=== PATIENT | female | born 1990 | race Caucasian/White ===

== ENCOUNTER 2018-01-20 17:21 | Emergency (ER) | payer OTHER ==
[~2018-01-20 17:21] MED LIST: PRED20 PO
[2018-01-20 17:25] VITALS: BP 143/77; PULSE 108; RESP 18; TEMP 98; O2SAT 98
[2018-01-20 18:19] LABS: BILIRUBIN, URINE NEG (NEG); BLOOD, URINE NEG (NEG); CALCIUM OXALATE CRYSTALS,URINE MANY /hpf; GLUCOSE,URINE NEG (NEG); KETONE, URINE NEG (NEG); MUCUS URINE MOD /lpf (OCC); NITRITE,URINE NEG (NEG); SQUAMOUS EPITHELIAL CELL URINE 28 /hpf (0-5); URINE COLOR YELLOW (YELLW/STRAW); URINE LEUKOCYTE ESTERASE NEG (NEG)
--- NOTE | 2018-01-20 19:15 | PD ---
HPI Chief Complaint: Related Problem Time Seen by Provider: 19:05 Travel History International Travel<30 days: No Contact w/Intl Traveler<30days: No Traveled to known affect area: No History of Present Illness HPI 27-year-old female approximately 15 weeks , no care, here for evaluation of lower abdominal pain and vaginal spotting. Patient reports having lower abdominal pain described as cramping for the last few days , initially intermittent, now more constant, worse with walking. She is also noted small amount of vaginal spotting on the toilet paper when she wipes. History of laparoscopy for ovarian cyst when she was 15 years old. No other abdominal surgeries. She reports having a fever of 100.6F yesterday. She also has dysuria. Pain radiates to her back, currently 6 out of 10. She had an ultrasound that confirmed IUP at [facility] when she was approximately 8 weeks . She is sexually active with one partner whom she is to and believe she is in a monogamous relationship. PFSH Past Medical History ?: Ovarian Cysts: Yes Social History Alcohol Use: No Tobacco Use: No Substance Use: No Allergies-Medications (Allergen,Severity, Reaction): Coded Allergies: No Known Allergies (Verified , 05/28/11) Reported Meds & Prescriptions Reported Meds & Active Scripts Active Deltasone (Prednisone) 20 Mg Tab 1 Tab PO BID Review of Systems Except as stated in HPI: all other systems reviewed are Neg Physical Exam Narrative GENERAL: Well-developed, well-nourished, comfortable, no apparent distress. SKIN: Focused skin assessment warm/dry. HEAD: Atraumatic. Normocephalic. EYES: Pupils equal and round. No scleral icterus. No injection or drainage. ENT: No nasal bleeding or discharge. Mucous membranes pink and moist. NECK: Trachea midline. No JVD. CARDIOVASCULAR: Regular rate and rhythm. RESPIRATORY: No accessory muscle use. Clear to auscultation. Breath sounds equal bilaterally. GASTROINTESTINAL: Abdomen soft, nondistended. Mild suprapubic tenderness. No peritoneal signs. SUPPLY TECHNICIAN: Exam performed in the presence of a female nurse. Normal external genitalia. Normal-appearing cervix with closed office. No vaginal bleeding. Scant/physiologic/uqw-swhp-[id number] vaginal discharge. MUSCULOSKELETAL: No obvious deformities. No clubbing. No cyanosis. No edema. No CVA tenderness. NEUROLOGICAL: Awake and alert. No obvious cranial nerve deficits. Motor grossly within normal limits. Normal speech. PSYCHIATRIC: Appropriate mood and affect; insight and judgment normal. Data Data Last Documented VS Vital Signs Date Time Temp Pulse Resp B/P (MAP) Pulse Ox O2 Delivery O2 Flow Rate FiO2 01/20/18 17:25 98.0 108 18 143/77 (99) 98 Orders Orders Complete Rh (01/20/18 17:28) Urinalysis - C+S If Indicated (01/20/18 17:28) Ed Urine Pregnancytest Poc (01/20/18 17:28) Complete Blood Count With Diff (01/20/18 17:29) Basic Metabolic Panel (Bmp) (01/20/18 17:29) Gc And Chlamydia Pcr (01/20/18 19:15) Wet Prep Profile (01/20/18 19:15) Beta Hcg (Quant/Titer) (01/20/18 17:29) Labs Laboratory Tests Test 01/20/18 17:50 01/20/18 19:15 01/20/18 19:18 01/20/18 20:40 Urine Color YELLOW Urine Turbidity HAZY Urine pH 6.0 Urine Specific [place] 1.039 Urine Protein 30 mg/dL Urine Glucose (UA) NEG mg/dL Urine Ketones NEG mg/dL Urine Occult Blood NEG Urine Nitrite NEG Urine Bilirubin NEG Urine Urobilinogen 2.0 MG/DL Urine Leukocyte Esterase NEG Urine WBC 3 /hpf Urine Squamous Epithelial Cells 28 /hpf Urine Calcium Oxalate Crystals MANY /hpf Urine Mucus MOD /lpf Microscopic Urinalysis Comment CULT NOT INDICATED White Blood Count 10.8 TH/MM3 Red Blood Count 4.32 MIL/MM3 Hemoglobin 13.5 GM/DL Hematocrit 38.5 % Mean Corpuscular Volume 89.1 FL Mean Corpuscular Hemoglobin 31.3 PG Mean Corpuscular Hemoglobin Concent 35.2 % Red Cell Distribution Width 13.8 % Platelet Count 257 TH/MM3 Mean Platelet Volume 8.9 FL Neutrophils (%) (Auto) 76.5 % Lymphocytes (%) (Auto) 16.1 % Monocytes (%) (Auto) 6.4 % Eosinophils (%) (Auto) 0.6 % Basophils (%) (Auto) 0.4 % Neutrophils # (Auto) 8.3 TH/MM3 Lymphocytes # (Auto) 1.7 TH/MM3 Monocytes # (Auto) 0.7 TH/MM3 Eosinophils # (Auto) 0.1 TH/MM3 Basophils # (Auto) 0.0 TH/MM3 CBC Comment DIFF FINAL Differential Comment Blood Urea Nitrogen 8 MG/DL Creatinine 0.57 MG/DL Random Glucose 96 MG/DL Calcium Level 9.4 MG/DL Sodium Level 140 MEQ/L Potassium Level 3.7 MEQ/L Chloride Level 108 MEQ/L Carbon Dioxide Level 25.9 MEQ/L Anion Gap 6 MEQ/L Estimat Glomerular Filtration Rate 127 ML/MIN Human Chorionic Gonadotropin, Quant 93728 MIU/ML Clue Cells (Wet Prep) NONE SEEN Vaginal Trichomonas (Wet Prep) NONE SEEN Vaginal Yeast (Wet Prep) NONE SEEN MDM Medical Decision Making Medical Screen Exam Complete: Yes Emergency Medical Condition: Yes Differential Diagnosis UTI, cystitis, round ligament pain, nephrolithiasis, ureterolithiasis, cholecystitis/cholelithiasis less likely, threatened , inevitable , PID, ectopic , acute appendicitis less likely, BV Narrative Course Vital signs reviewed. Bedside transabdominal ultrasound performed by me shows an IUP with heart rate of 156 bpm. Bedside ultrasound of the kidneys show no hydronephrosis. CBC is unremarkable. BMP is unremarkable. Beta-hCG is 29,700. Blood type is A+. UA shows many calcium oxalate crystals, moderate mucus, negative leukocyte esterase, negative nitrites. Wet prep: Is negative for yeast, negative for clue cells, negative for trichomonas. The patient was made aware of all findings. She is resting comfortably. She does have calcium oxalate crystals in her urine which could indicate that she is passing kidney stones causing her discomfort. I do not believe that there is an acute intra-abdominal process such as appendicitis or cholecystitis to warrant further imaging at this time. There are no peritoneal signs and her abdominal exam. Patient also could have round ligament pain. At this point she is stable for discharge home with outpatient follow-up with an CHAPTER RELATIONS ADMINISTRATOR physician this week. She was advised on when to return to the emergency department. She verbalizes understanding and agreement with plan. Procedures Procedure Narrative Bedside transabdominal ultrasound: Using the curvilinear ultrasound probe, a bedside transabdominal ultrasound was performed by mi and shows an IUP with a heart rate of 156 bpm. Bedside kidney ultrasound: Using the curvilinear ultrasound probe, a bedside ultrasound of the kidneys was performed by me and shows no signs of hydronephrosis. Diagnosis Primary Impression: Abdominal pain affecting Referrals: [facility] 3 days Additional Instructions: Follow-up with an CHAPTER RELATIONS ADMINISTRATOR physician this week. Return to the emergency department for worsening symptoms or any other concerns. Disposition: 01 DISCHARGE HOME Condition: Stable Raji Weinberg MD Jan 20, 2018 19:15
[2018-01-20 19:38] LABS: AUTOMATED NEUTROPHIL # 8.3 TH/MM3 (1.8-7.7); BASOPHIL % 0.4 % (0.0-2.0); EOSINOPHIL # 0.1 TH/MM3 (0-0.4); EOSINOPHIL % 0.6 % (0.0-4.0); HEMATOCRIT 38.5 % (35.0-46.0); HEMOGLOBIN 13.5 GM/DL (11.6-15.3); LYMPH % 16.1 % (9.0-44.0); LYMPHOCYTE # 1.7 TH/MM3 (1.0-4.8); MEAN CELL VOLUME 89.1 FL (80.0-100.0); MEAN CORPUSCULAR HEMOGLOBIN 31.3 PG (27.0-34.0); MEAN CORPUSCULAR HGB CONC 35.2 % (32.0-36.0); MEAN PLATELET VOLUME 8.9 FL (7.0-11.0); MONO % 6.4 % (0.0-8.0); MONOCYTE # 0.7 TH/MM3 (0-0.9); NEUT % 76.5 % (16.0-70.0); PLATELET COUNT 257 TH/MM3 (150-450); RED BLOOD COUNT 4.32 MIL/MM3 (4.00-5.30); RED CELL DISTRIBUTION WIDTH 13.8 % (11.6-17.2); WHITE BLOOD COUNT 10.8 TH/MM3 (4.0-11.0)
[2018-01-20 19:52] LABS: BICARBONATE 25.9 MEQ/L (21.0-32.0); CALCIUM 9.4 MG/DL (8.5-10.1); CREATININE 0.57 MG/DL (0.50-1.00)
== END 2018-01-20 21:41 | disposition home or self-care (01) ==
LOC: NEPD 17:21
DX: O26.892 Other specified pregnancy related conditions, second trimester (principal); R10.9 Unspecified abdominal pain; Z3A.15 15 weeks gestation of pregnancy
CPT/HCPCS: 80048; 81001; 84702; 84703; 85025; 86901; 87210; 87491; 87591; 99284

== ENCOUNTER 2018-07-09 07:58 | Inpatient (IN) ==
[2018-07-09] MEDS ORDERED: Naloxone Inj 0.4 MG/ML Vial IV.PUSH PRN ×2 (08:42→20:36)
[2018-07-09] MEDS ORDERED: Oxytocin 30 Units/500ml Premix 30 UNITS/500 ML BAG IV.SIG ONE (08:42)
[2018-07-09] MEDS ORDERED: Sod Chloride 0.9% Inj 1,000 ML IV.CONT PRN (08:42)
[2018-07-09] MEDS ORDERED: fentaNYL Citrate Inj 100 MCG/2 ML Ampul IV.PUSH PRN ×2 (08:42)
[2018-07-09] MEDS ORDERED: Sodium Chlor 0.9% Inj 500 ML IV.SIG PRN (08:42)
[2018-07-09] MEDS ORDERED: Oxytocin 30 Units/500ml Premix 30 UNITS/500 ML BAG IV.SIG PRN (08:44)
[2018-07-09] MEDS ORDERED: Citric Acid/Sodium Citrate Liq 30 ML UDC PO SCH (08:45)
[2018-07-09] MEDS ORDERED: Sodium Chloride 0.9% 2 ML Flush PRN IV.FLUSH (08:47)
--- NOTE | 2018-07-09 08:51 | P.HPOB ---
History of Present Illness Service: obstetrics Primary Care Physician: No Primary Care Physician Weeks Gestation:: 39 Para: 2 : 3 - Inpatient Certification I certify that the inpatient services were ordered in accordance with Medicare regulations governing the order. This includes certification that hospital inpatient services are reasonable and necessary and in the case of services not specified as inpatient-only under 42 CFR 419.22(n), that they are appropriately provided as inpatient services in accordance to with the 2-midnight benchmark under 43 CFR 412.3(e) Estimated Total Length of Stay (Days): 3 Plans for Post Hospital Care: Home Review of Systems All other systems reviewed negative except as stated in HPI PMFSH - Medical / Surgical Hx Neg / Unobtainable Medical Problems Denied: Yes Surgical History: No Previous Surgery ( x2) - Social History I have reviewed the patient's Social History: Yes - Tobacco History Second Hand Smoke Exposure: No Tobacco Use In Past 30 Days: No Smoking Status: Never smoker - Alcohol History How Often Do You Have a Drink Containing Alcohol: Never - Substance Use History Substance History: No History of Abuse - Travel History History of Recent Travel: No Medications and Allergies Active Medications: Active Medications Citric Acid/Sodium Citrate (Sodium Citrate/Citric Acid Liq) 30 ml PO BLADE SHARPENER ANISHA Stop: 07/13/18 08:44 Fentanyl Citrate (Fentanyl Inj) 50 mcg IV.PUSH Q1H PRN PRN Reason: Pain Scale 3 - 5 Fentanyl Citrate (Fentanyl Inj) 100 mcg IV.PUSH Q1H PRN PRN Reason: PAIN SCALE 6 TO 10 Lactated Ringer's (Lr 1000 Ml Inj) 1,000 mls @ 125 mls/hr IV.CONT .Q8H ANISHA Sodium Chloride (Ns Inj) 500 mls @ 1,000 mls/hr IV.SIG UNSCH PRN PRN Reason: SEE LABEL COMMENTS Sodium Chloride (Ns Inj) 1,000 mls @ 100 mls/hr IV.CONT .Q10H PRN PRN Reason: SEE LABEL COMMENTS Oxytocin (Pitocin 30 Units/Ns 500 Ml Premix) 30 units in 500 mls @ 999 mls/hr IV.SIG BOLUS ONE Stop: 07/09/18 09:12 Lactated Ringer's (Lr 1000 Ml Inj) 1,000 mls @ 3,000 mls/hr IV.SIG UNSCH PRN PRN Reason: compromise or epidural Oxytocin (Pitocin 30 Units/Ns 500 Ml Premix) 30 units in 500 mls @ 2 mls/hr IV.SIG TITRATE PRN; Protocol PRN Reason: For induction of labor Lidocaine HCl (Xylocaine 1% Inj) 0.1 ml I-DERMAL PRN PRN PRN Reason: For IV start Stop: 07/12/18 08:41 Lidocaine HCl (Xylocaine 1% Inj) 10 ml INFILTRATN PRN PRN PRN Reason: For episiotomy repair Stop: 07/11/18 08:41 Mineral Oil (Muri-Lube Oil) 10 ml TOPICAL PRN PRN PRN Reason: PRN perineal massage Naloxone HCl (Narcan Inj) 0.1 mg IV.PUSH Q2M PRN PRN Reason: for opiate reversal Sodium Chloride (Ns Flush) 2 ml IV.FLUSH BID ANISHA Sodium Chloride (Ns Flush) 2 ml IV.FLUSH PRN PRN PRN Reason: FLUSH AFTER USING IV ACCESS Allergies Allergy/AdvReac Type Severity Reaction Status Date / Time No Known Allergies Allergy Verified 06/26/18 14:42 Home Medications Medication Instructions Recorded Confirmed Type No Known Home Medications 06/26/18 06/26/18 History Exam Vital signs: Vital Signs 07/09/18 08:15 Pulse Rate 107 H Blood Pressure 127/71 Intake & Output 07/08/18 07/09/18 07/09/18 18:59 06:59 18:59 Weight 107.048 kg - Constitutional no acute distress - Routine Respiratory Exam Present: CTA bilaterally - Routine Cardiovascular Exam Present: RRR - Routine Abdominal Exam Present: soft, normoactive bowel sounds - Routine Exam Patient deferred: external exam External: Present: normal urethra appearance Perineum Description: Intact - Routine Extremities Exam Present: full ROM - Additional findings Additional findings: cervix 2-3/ 80/-2 anterior Results - Labs Group B Strep: Negative Caprini VTE Risk Assessment Caprini VTE Risk Assessment: No/Low Risk (score <= 1) Caprini Risk Assessment Model: Point Value = 1 Point Value = 2 Point Value = 3 Point Value = 5 Age 41-60 Minor surgery BMI > 25 kg/m2 Swollen legs Varicose veins or History of unexplained or recurrent spontaneous Oral contraceptives or hormone replacement Sepsis (< 1 month) Serious lung disease, including pneumonia (< 1 month) Abnormal pulmonary function Acute myocardial infarction Congestive heart failure (< 1 month) History of inflammatory bowel disease Medical patient at bed rest Age 61-74 Arthroscopic surgery Major open surgery (> 45 min) Laparoscopic surgery (> 45 min) Malignancy Confined to bed (> 72 hours) Immobilizing plaster cast Central venous access Age >= 75 History of VTE Family history of VTE Factor V Leiden Prothrombin [id number] Lupus anticoagulant Anticardiolipin antibodies Elevated serum homocysteine Heparin-induced thrombocytopenia Other congenital or acquired thrombophilia Stroke (< 1 month) Elective arthroplasty Hip, pelvis, or leg fracture Acute spinal cord injury (< 1 month) Prophylaxis Regimen: Total Risk Factor Score Risk Level Prophylaxis Regimen 0-1 Low Early ambulation 2 Moderate Order ONE of the following: *Sequential Compression Device (SCD) *Heparin 5000 units SQ BID 3-4 Higher Order ONE of the following medications: *Heparin 5000 units SQ TID *Enoxaparin/Lovenox 40 mg SQ daily (WT < 150 kg, CrCl > 30 mL/min) *Enoxaparin/Lovenox 30 mg SQ daily (WT < 150 kg, CrCl > 10-29 mL/min) *Enoxaparin/Lovenox 30 mg SQ BID (WT < 150 kg, CrCl > 30 mL/min) AND/OR *Sequential Compression Device (SCD) 5 or more Highest Order ONE of the following medications: *Heparin 5000 units SQ TID (Preferred with Epidurals) *Enoxaparin/Lovenox 40 mg SQ daily (WT < 150 kg, CrCl > 30 mL/min) *Enoxaparin/Lovenox 30 mg SQ daily (WT < 150 kg, CrCl > 10-29 mL/min) *Enoxaparin/Lovenox 30 mg SQ BID (WT < 150 kg, CrCl > 30 mL/min) AND *Sequential Compression Device (SCD) Assessment and Plan - Diagnosis (1) 39 weeks gestation of Code(s): Z3A.39 - 39 weeks gestation of Status: Acute - Plan induction AROM pitocin
[2018-07-09 08:58] LABS: Baso % (Auto) 0.1 % (0.0-2.0); Eos % (Auto) 0.5 % (0.0-4.0); Hematocrit 33.3 % (35.0-46.0); Hemoglobin 11.5 gm/dL (11.6-15.3); Lymph # (Auto) 1.7 th/mm3 (1.0-4.8); Lymph % (Auto) 18.1 % (9.0-44.0); Mean Corpuscular HGB Conc 34.5 % (32.0-36.0); Mean Corpuscular Hemoglobin 30.5 pg (27.0-34.0); Mean Corpuscular Volume 88.3 fL (80.0-100.0); Mean Platelet Volume 9.2 fL (7.0-11.0); Mono # (Auto) 0.6 th/mm3 (0.0-0.9); Mono % (Auto) 6.8 % (0.0-8.0); Neut # (Auto) 6.9 th/mm3 (1.8-7.7); Neut % (Auto) 74.5 % (16.0-70.0); Platelet Count 203 th/mm3 (150-450); Red Blood Count 3.77 mil/mm3 (4.00-5.30); Red Cell Distribution Width 15.2 % (11.6-17.2); White Blood Count 9.3 th/mm3 (4.0-11.0)
[2018-07-09 09:49] LABS: Bilirubin,Urine Negative (Negative); Clarity,Urine Hazy (Clear); Color,Urine Yellow (Yellw/Straw); Glucose,Urine (UA) Negative (Negative); Leukocyte Esterase,Urine Trace (Negative); Mucus,Urine Few /lpf (Occasional); Nitrite,Urine Negative (Negative); Specific Gravity,Urine 1.017 (1.002-1.035); Squamous Epithelial Cell,Urine 9 /hpf (0-5); Urobilinogen,Urine 4 or Greater mg/dL (Less than 2)
[2018-07-09 09:53] LABS: Amphetamine Urine With Conf Neg (Neg); Benzodiazepine Urine With Conf Neg (Neg)
[2018-07-09] MEDS ORDERED: fentaNYL 2MCG-Bupiv 0.125% Epi 150 ML EPIDURAL ONE (13:53)
[2018-07-09] MEDS ORDERED: Lidocaine 2%/Epinephrine 1:200,000 PF 10 ML SDV ONE (13:55)
[2018-07-09] MEDS ORDERED: fentaNYL 2MCG-Bupiv 0.125% Epi 150 ML EPIDURAL PRN (14:43)
[2018-07-09] MEDS ORDERED: fentaNYL Citrate Inj 100 MCG/2 ML Ampul EPIDURAL ONE (14:43)
[2018-07-09] MEDS ORDERED: Measles/Mumps/Rubella Vaccine Inj 0.5 ML Vial SQ ONE (16:00)
[2018-07-09] MEDS ORDERED: Diphtheria/Tetanus/Pertussis Vaccine Inj 0.5 ML Syringe IM ONE (16:00)
[2018-07-09] MEDS: Sodium Chloride 0.9% 2 ML Flush BID IV.FLUSH SCH (16:17)
[2018-07-09] MEDS ORDERED: Lidocaine 1% Inj 50 ML Vial ONE (20:01)
[2018-07-09] MEDS ORDERED: Oxytocin 30 Units/500ml Premix 30 UNITS/500 ML BAG IV.CONT PRN (20:36)
[2018-07-09] MEDS ORDERED: Zolpidem Tartrate 5 MG Tablet PO PRN (20:36)
[2018-07-09] MEDS ORDERED: Acetaminophen 325 MG Tablet PO PRN (20:36)
[2018-07-09] MEDS ORDERED: Benzocaine 20% Top Spray 60 ML Can TOPICAL PRN (20:36)
[2018-07-09] MEDS ORDERED: Witch Hazel 50%/Glyderin 12.5% 40 Pad Jar RECTAL PRN (20:36)
[2018-07-09] MEDS ORDERED: Bisacodyl 10 MG Supp RECTAL PRN (20:36)
--- NOTE | 2018-07-09 20:40 | P.OBDELI ---
Weeks Gestation: 39 Patient Started Active Labor: Yes Medical Induction of Labor: Yes Artificial Rupture of Membrane: Yes Anesthesia: Epidural Episiotomy: none Vaginal Delivery: Normal Presentation: Occiput anterior Nuchal Cord: None Delayed Cord Clamping (45 sec): Yes Placenta: Spontaneous delivery, Intact, 3 vessel cord Repair: Chromic running Infant: Female, Single
--- NOTE | 2018-07-10 08:35 | P.PNOB ---
Subjective Post day: 1 Interval history: doing well pp Objective Vital Signs/I&O: Vital Signs 07/09/18 09:48 07/09/18 09:50 07/09/18 10:21 Temperature 98.0 F Pulse Rate 113 H Respiratory Rate 18 18 Blood Pressure 111/56 L 07/09/18 10:22 07/09/18 10:53 07/09/18 11:45 Temperature Pulse Rate 105 H 100 H 104 H Respiratory Rate 18 Blood Pressure 111/66 111/63 103/87 07/09/18 12:15 07/09/18 12:30 07/09/18 12:47 Temperature Pulse Rate 94 H 97 H 94 H Respiratory Rate 16 Blood Pressure 114/73 109/71 118/67 07/09/18 13:00 07/09/18 14:15 07/09/18 14:20 Temperature 98.2 F Pulse Rate 85 93 H 101 H Respiratory Rate 18 Blood Pressure 114/69 111/64 114/64 07/09/18 14:25 07/09/18 14:27 07/09/18 14:30 Temperature Pulse Rate 93 H 98 H Respiratory Rate 18 Blood Pressure 111/56 L 120/62 07/09/18 14:34 07/09/18 14:45 07/09/18 16:09 Temperature Pulse Rate 103 H 99 H 86 Respiratory Rate Blood Pressure 115/60 118/69 105/58 L 07/09/18 16:15 07/09/18 16:21 07/09/18 17:01 Temperature 98.1 F Pulse Rate 87 99 H Respiratory Rate Blood Pressure 106/54 L 118/51 L 07/09/18 17:15 07/09/18 18:10 07/09/18 18:25 Temperature Pulse Rate 109 H 103 H Respiratory Rate 18 Blood Pressure 97/37 L 07/09/18 18:49 07/09/18 19:00 07/09/18 19:15 Temperature Pulse Rate 113 H 101 H Respiratory Rate 18 Blood Pressure 102/54 L 109/60 07/09/18 19:58 07/09/18 19:59 07/09/18 20:07 Temperature Pulse Rate 101 H 114 H Respiratory Rate 18 18 Blood Pressure 125/74 104/63 07/09/18 20:41 07/09/18 20:42 07/09/18 20:46 Temperature 100.0 F H Pulse Rate 118 H 110 H Respiratory Rate 18 Blood Pressure 112/57 L 91/59 L 07/09/18 21:05 07/09/18 21:15 07/09/18 21:20 Temperature 99.0 F Pulse Rate 97 H 94 H Respiratory Rate 18 18 Blood Pressure 91/69 L 124/87 07/09/18 21:35 07/09/18 22:44 07/09/18 23:05 Temperature 98.7 F 98.9 F Pulse Rate 93 H 101 H 93 H Respiratory Rate 18 18 18 Blood Pressure 118/65 123/64 115/69 Intake & Output 07/09/18 07/10/18 07/10/18 18:59 06:59 18:59 Intake Total 1000 / 1000 Balance 1000 / 1000 Weight 107.048 kg Intake: IV 1000 / 1000 LR 1000 mL Inj 1,000 ML @ 125 1000 / 1000 mls/hr IV.CONT .Q8H [facility] Rx#: [id number] Result Diagrams: 07/09/18 08:31 Objective Remarks: GENERAL: Well-nourished, well-developed patient. ABDOMEN/GI: Abdomen soft, non-tender. Fundus: Firm, non-tender at umbilicus. GENITOURINARY: Light to moderate bleeding. EXTREMITIES: No cyanosis or edema, non-tender, without signs of DVT. Medications and IVs: Active Medications Acetaminophen (Tylenol) 650 mg PO Q4H PRN PRN Reason: PAIN SCALE 1 TO 2 Al Hydroxide/Mg Hydroxide (Milk Of Didier Liq) 30 ml PO Q12H PRN PRN Reason: Mild Constipation Benzocaine (Americaine 20% [place]) 1 spray TOPICAL Q4H PRN PRN Reason: For Perineum Discomfort Last Admin: 07/10/18 00:29 Dose: 1 spray Bisacodyl (Dulcolax Supp) 10 mg RECTAL DAILY PRN PRN Reason: SEVERE CONSITIPATION Ephedrine Sulfate (Ephedrine/Ns Syringe) 10 mg IV.PUSH UNSCH PRN PRN Reason: SEE LABEL COMMENTS Stop: 07/10/18 14:43 Oxytocin (Pitocin 30 Units/Ns 500 Ml Premix) 30 units in 500 mls @ 2 mls/hr IV.SIG TITRATE PRN; Protocol PRN Reason: For induction of labor Last Admin: 07/09/18 09:07 Dose: 2 milliunit/min, 2 mls/hr Fentanyl/Bupivacaine/Sodium Chlor (Fentanyl 2 Mcg-Bupiv 0.125% Epi) 150 mls @ 12 mls/hr EPIDURAL PRN PRN PRN Reason: for Labor Pain Last Admin: 07/09/18 14:06 Dose: 12 mls/hr Oxytocin (Pitocin 30 Units/Ns 500 Ml Premix) 30 units in 500 mls @ 100 mls/hr IV.CONT UNSCH PRN PRN Reason: Heavy bleeding Ibuprofen (Motrin) 800 mg PO Q8H PRN PRN Reason: For Cramping Last Admin: 07/10/18 05:47 Dose: 800 mg Lactulose (Lactulose Liq) 30 ml PO DAILY PRN PRN Reason: SEVERE CONSITIPATION Miscellaneous Information (Misc Information) 1 each OTHER UNSCH PRN PRN Reason: SEE LABEL COMMENTS Stop: 07/10/18 14:43 Miscellaneous Information (Misc Information) 1 each OTHER UNSCH PRN PRN Reason: SEE LABEL COMMENTS Stop: 07/10/18 14:43 Naloxone HCl (Narcan Inj) 0.1 mg IV.PUSH Q2M PRN PRN Reason: for opiate reversal Ondansetron HCl (Zofran Odt) 4 mg PO Q6H PRN PRN Reason: NAUSEA OR VOMITING Oxycodone/Acetaminophen (Percocet 5/325 Mg) 1 tab PO Q4H PRN PRN Reason: PAIN SCALE 3 TO 5 Oxycodone/Acetaminophen (Percocet 5/325 Mg) 2 tab PO Q4H PRN PRN Reason: PAIN SCALE 6 TO 10 Senna/Docusate Sodium (Patricia-Colace) 1 tab PO BID [facility] Sennosides (Senokot) 17.2 mg PO Q12H PRN PRN Reason: Moderate Constipation Sodium Chloride (Ns Flush) 2 ml IV.FLUSH BID [facility] Last Admin: 07/09/18 16:17 Dose: Not Given Sodium Chloride (Ns Flush) 2 ml IV.FLUSH PRN PRN PRN Reason: FLUSH AFTER USING IV ACCESS Sodium Chloride (Ns Flush) 2 ml IV.FLUSH PRN PRN PRN Reason: FLUSH AFTER USING IV ACCESS Sodium Chloride (Ns Flush) 2 ml IV.FLUSH BID [facility] Witch Steph/Glycerin (Tucks Pads) 1 applicatio RECTAL QID PRN PRN Reason: HEMORRHOIDS Last Admin: 07/10/18 00:29 Dose: 1 applicatio Zolpidem Tartrate (Ambien) 5 mg PO HS PRN PRN Reason: SLEEP Assessment and Plan - Diagnosis (1) 39 weeks gestation of Code(s): Z3A.39 - 39 weeks gestation of Status: Acute - Plan induction AROM pitocin
[2018-07-10] MEDS: Senna/Docusate Sodium 8.6/50 MG Tablet PO SCH ×3 (08:53→21:00)
[2018-07-10] MEDS: Sodium Chloride 0.9% 2 ML Flush BID IV.FLUSH SCH (08:54)
[2018-07-10] MEDS ORDERED: Diphtheria/Tetanus/Pertussis Vaccine Inj 0.5 ML Syringe IM ONE (19:30)
[2018-07-11] MEDS: Sodium Chloride 0.9% 2 ML Flush BID IV.FLUSH SCH ×2 (04:13→16:30)
--- NOTE | 2018-07-11 07:53 | P.PNOB ---
Subjective Post day: 2 Interval history: doing well dc home today Objective Vital Signs/I&O: Vital Signs 07/10/18 08:30 07/10/18 19:30 Temperature 98.5 F 97.6 F Pulse Rate 83 76 Respiratory Rate 18 17 Blood Pressure 105/58 L 102/69 Result Diagrams: 07/09/18 08:31 Objective Remarks: GENERAL: Well-nourished, well-developed patient. ABDOMEN/GI: Abdomen soft, non-tender. Fundus: Firm, non-tender at umbilicus. GENITOURINARY: Light to moderate bleeding. EXTREMITIES: No cyanosis or edema, non-tender, without signs of DVT. Medications and IVs: Active Medications Acetaminophen (Tylenol) 650 mg PO Q4H PRN PRN Reason: PAIN SCALE 1 TO 2 Al Hydroxide/Mg Hydroxide (Milk Of Magnesia Liq) 30 ml PO Q12H PRN PRN Reason: Mild Constipation Benzocaine (Americaine 20% Top [place]) 1 spray TOPICAL Q4H PRN PRN Reason: For Perineum Discomfort Last Admin: 07/10/18 00:29 Dose: 1 spray Bisacodyl (Dulcolax Supp) 10 mg RECTAL DAILY PRN PRN Reason: SEVERE CONSITIPATION Oxytocin (Pitocin 30 Units/Ns 500 Ml Premix) 30 units in 500 mls @ 2 mls/hr IV.SIG TITRATE PRN; Protocol PRN Reason: For induction of labor Last Admin: 07/09/18 09:07 Dose: 2 milliunit/min, 2 mls/hr Fentanyl/Bupivacaine/Sodium Chlor (Fentanyl 2 Mcg-Bupiv 0.125% Epi) 150 mls @ 12 mls/hr EPIDURAL PRN PRN PRN Reason: for Labor Pain Last Admin: 07/09/18 14:06 Dose: 12 mls/hr Oxytocin (Pitocin 30 Units/Ns 500 Ml Premix) 30 units in 500 mls @ 100 mls/hr IV.CONT UNSCH PRN PRN Reason: Heavy bleeding Ibuprofen (Motrin) 800 mg PO Q8H PRN PRN Reason: For Cramping Last Admin: 07/11/18 05:00 Dose: 800 mg Lactulose (Lactulose Liq) 30 ml PO DAILY PRN PRN Reason: SEVERE CONSITIPATION Naloxone HCl (Narcan Inj) 0.1 mg IV.PUSH Q2M PRN PRN Reason: for opiate reversal Ondansetron HCl (Zofran Odt) 4 mg PO Q6H PRN PRN Reason: NAUSEA OR VOMITING Oxycodone/Acetaminophen (Percocet 5/325 Mg) 1 tab PO Q4H PRN PRN Reason: PAIN SCALE 3 TO 5 Oxycodone/Acetaminophen (Percocet 5/325 Mg) 2 tab PO Q4H PRN PRN Reason: PAIN SCALE 6 TO 10 Senna/Docusate Sodium (Patricia-Colace) 1 tab PO BID [facility] Last Admin: 07/10/18 21:00 Dose: 1 tab Sennosides (Senokot) 17.2 mg PO Q12H PRN PRN Reason: Moderate Constipation Sodium Chloride (Ns Flush) 2 ml IV.FLUSH BID [facility] Last Admin: 07/11/18 04:13 Dose: Not Given Sodium Chloride (Ns Flush) 2 ml IV.FLUSH PRN PRN PRN Reason: FLUSH AFTER USING IV ACCESS Sodium Chloride (Ns Flush) 2 ml IV.FLUSH PRN PRN PRN Reason: FLUSH AFTER USING IV ACCESS Sodium Chloride (Ns Flush) 2 ml IV.FLUSH BID [facility] Last Admin: 07/11/18 04:12 Dose: Not Given Witch Steph/Glycerin (Tucks Pads) 1 applicatio RECTAL QID PRN PRN Reason: HEMORRHOIDS Last Admin: 07/10/18 00:29 Dose: 1 applicatio Zolpidem Tartrate (Ambien) 5 mg PO HS PRN PRN Reason: SLEEP Assessment and Plan - Diagnosis (1) 39 weeks gestation of Code(s): Z3A.39 - 39 weeks gestation of Status: Acute (2) Spontaneous vaginal delivery Code(s): O80 - Encounter for full-term uncomplicated delivery Status: Acute - Plan DC home PPD #2
--- NOTE | 2018-07-11 08:01 | P.DS ---
Date of admission: 07/09/18 07:58 Primary care physician: Marlene Primary Care Physician Brief History from admission: 27 yo came for induction at 39 weeks here for AROM and pitocin DS: Diagnosis - Discharge Diagnosis (1) 39 weeks gestation of Status: Acute (2) Spontaneous vaginal delivery Status: Acute DS: Medications - Discharge Medications Prescriptions: oxycodone-acetaminophen 2 tab PO Q4H PRN 3 Days #18 tab PRN Reason: Pain Scale 6 To 10 DS: Summary Hospital Course: patient came and delivered DC home PoD #2 - Time Spent with Patient Total time spent providing and/or coordinating discharge services: Less than 30 minutes Exam Vital signs: Vital Signs 07/10/18 08:30 07/10/18 19:30 Temperature 98.5 F 97.6 F Pulse Rate 83 76 Respiratory Rate 18 17 Blood Pressure 105/58 L 102/69 - Constitutional no acute distress - Routine Neck Exam Present: supple, full ROM - Routine Respiratory Exam Present: CTA bilaterally - Routine Cardiovascular Exam Present: RRR - Routine Abdominal Exam Present: soft, normoactive bowel sounds - Routine Skin Exam Present: intact - Routine Neurological Exam Present: oriented X3 Results Procedures completed during hospitalization: on 07/09/2018 Discharge Plan - Discharge Disposition Patient Disposition: 01 Discharge Home - Discharge Condition Condition: Good - Discharge Order Discharge Orders: Discharge Order (Routine); Ordered 07/11/18 Ordered By: Yoni Rocha - Physicians Team Primary Care Provider: Primary Marlene Gómez Attending Provider: Yoni Rocha - Rxs /Orders / Referrals /Forms Prescriptions: New oxycodone-acetaminophen 5-325 mg Tablet 2 tab PO Q4H PRN (Reason: Pain Scale 6 To 10) 3 Days Qty: 18 RF: 0 Continue No Known Home Medications Referrals: Yoni Rocha MD [Physician] - See Instructions Primary Care Marlene Khan [Primary Care Provider] - See Instructions - Post Discharge Care Plan Care Plan Goals: Congratulations on your new baby! We want your recovery to be cruz and trouble free. Please Report the Following Symptoms to Your Doctor: -Temperature above 100.5 degrees -Unusual pain or calf pain -Increased vaginal bleeding -Painful or difficulty urinating -Feelings of extreme sadness or anxiety Goals to Promote Your Health * To prevent worsening of your condition and complications * To maintain your health at the optimal level Directions to Meet Your Goals Take your medications as prescribed Follow your dietary instruction Follow activity as directed Ensure plenty of rest for recovery Drink fluids for hydration Keep your appointments as scheduled Take your immunizations and boosters as scheduled If your symptoms worsen call your OB Physician, or go to an Urgent Care Center or Emergency Room Smoking is Dangerous to your health. Avoid second hand smoke Call the 24-hour crisis hotline for domestic abuse at
[2018-07-11 08:02] VITALS: BP 112/64; PULSE 70
[2018-07-11 08:03] VITALS: RESP 18; TEMP 98.1
[2018-07-11] MEDS: Senna/Docusate Sodium 8.6/50 MG Tablet PO SCH (11:45)
== END 2018-07-11 15:32 | disposition home or self-care (01) ==
LOC: H2E 07:58 → H1EA 22:57
PROVIDERS: ADMIT Obstetrics & Gynecology; ATTEND Obstetrics & Gynecology